=== PATIENT | female | born 1960 | race Caucasian/White ===

== ENCOUNTER 2017-07-31 09:34 | Emergency (ER) | payer OTHER ==
[~2017-07-31] VITALS: Ht 170.2 cm; Wt 62.6 kg
--- NOTE | ~2017-07-31 | EKG ---
[place] [address] [facility] [employer] [place] [address] ELECTROCARDIOGRAM REPORT Name: JERZY WILLIAMSON Room #: [facility]USChuck[facility] [id number] Admission: 07/31/17 Attend Phys: Discharge: 07/31/17 Date of : 60 Report #: [id number] THIS REPORT FOR: //name// [facility] ED Test Date: 2017-07-31 Test Time: 10:34:36 Pat Name: JERZY WILLIAMSON Department: Room: Gender: F Manager Primary Care: Toy ANGUIANO : 1960 Requested By: Ronny El Order Number: [id number] MD: Dank Maciel Measurements Intervals [place] Rate: 73 P: 68 ID: [id number] QRS: 64 QRSD: 101 T: 50 QT: 420 QTc: 463 Interpretive Statements Sinus arrhythmia Ventricular premature complex Compared to ECG 04/24/2011 08:43:37 No significant change was found Electronically Signed On 07-31-2017 15:33:00 ELECTROCARDIOGRAPH REPAIRER by Dank Maciel [email or web address] <ELECTRONICALLY SIGNED> By: Dank Maciel MD, [facility] 07/31/17 1533 1034 1034 Dank Maciel MD, FACC /EPI
[~2017-07-31 09:34] MED LIST: AMBEREN
[2017-07-31 10:44] LABS: ABSOLUTE NEUTROPHILS 2.8 thou/uL (1.4-8.2); BASOPHILS 0.5 % (0.0-2.0); EOSINOPHILS 0.9 % (0.0-3.0); HEMOGLOBIN 13.3 gm/dL (12.0-15.0); LYMPHOCYTES 31.6 % (24.0-44.0); MCH 30.5 pg (26.0-34.0); MCHC 34.2 g/dL (28.0-37.0); MCV 89.2 fL (80.0-100.0); MONOCYTES 9.9 % (1.0-8.0); PLATELET COUNT 297 thou/uL (150-400); POLYS 57.1 % (36.0-66.0); RBC 4.37 mil/uL (4.20-5.00); RDW 12.3 % (10.5-14.5); WBC 4.8 thou/uL (4.0-11.0)
[2017-07-31 10:56] LABS: ANION GAP 5 mmol/L (7-16); BUN 12 mg/dL (7-18); CALCIUM 9.2 mg/dL (8.5-10.1); CHLORIDE 106 mmol/L (98-107); CO2 29 mmol/L (21-32); CREATININE 0.8 mg/dL (0.6-1.0); GLUCOSE 96 mg/dL (74-106); POTASSIUM 3.9 mmol/L (3.5-5.1); SODIUM 140 mmol/L (136-145)
[2017-07-31 11:03] LABS: TROPONIN-I < 0.04 ng/mL (<0.06)
[2017-07-31] MEDS ORDERED: MOBIC15 MG PO (11:13)
== END 2017-07-31 11:46 | disposition home or self-care (01) ==
LOC: ER 09:34
PROVIDERS: Physician Assistant
DX: M79.605 Pain in left leg (principal); R07.89 Other chest pain; R20.2 Paresthesia of skin